=== PATIENT | female | born 1980 | race Two or more races ===

== ENCOUNTER 2017-11-06 08:07 | Outpatient (CLI) | payer OTHER ==
[~2017-11-06 08:07] MED LIST: CEFADROXIL500 MG PO
== END 2017-11-06 08:23 | disposition home or self-care (01) ==
LOC: MAMO-SONO 08:07
DX: N63.10 Unspecified lump in the right breast, unspecified quadrant (principal); N63.11 Unspecified lump in the right breast, upper outer quadrant; Z12.31 Encounter for screening mammogram for malignant neoplasm of breast; D50.8 Other iron deficiency anemias; D51.1 Vitamin B12 deficiency anemia due to selective vitamin B12 malabsorption with proteinuria; D51.8 Other vitamin B12 deficiency anemias; K31.83 Achlorhydria; E55.9 Vitamin D deficiency, unspecified; E03.8 Other specified hypothyroidism; E06.3 Autoimmune thyroiditis